=== PATIENT | male | born 1990 | race Caucasian/White ===

== ENCOUNTER 2019-01-24 20:32 | Emergency (ER) | payer OTHER ==
[~2019-01-24] VITALS: Ht 175.3 cm; Wt 89.8 kg
[2019-01-24 20:36] VITALS: BP 176/98
--- NOTE | 2019-01-24 20:38 | NUR ---
TO LOBBY AWAITNG BED, VSS.
--- NOTE | 2019-01-24 21:15 | NUR ---
PT TAKEN TO BED 1.
--- NOTE | 2019-01-24 21:25 | NUR ---
PT BIBA C/O ANXIETY. PT STATES HE WAS AT WORK AT [employer] STARTED FEELING ANXIOUS, STATES "I JUST WANT TO RELAX", PT STATES HE LAST USED COCAINE ON SUNDAY. PT STATES 06/12 HEACHE STARTING TODAY. +FLIGHT OF IDEAS, +EXCESSIVE, CLEAR SPEECH. SAFETY PRECAUTIONS IN PLACE. PENDING ER MD BIRD. PMH: DRUG ABUSE
[2019-01-25 00:20] VITALS: BP 150/80
--- NOTE | 2019-01-25 00:20 | NUR ---
Patient discharged with v/s stable. Written and verbal after care instructions given and explained. Patient alert, oriented and verbalized understanding of instructions. Ambulatory with steady gait. All questions addressed prior to discharge. ID band removed. Patient advised to follow up with PMD. Rx of Atarax 25mg given. Patient educated on indication of medication including possible reaction and side effects. Opportunity to ask questions provided and answered.
== END 2019-01-25 00:20 | disposition home or self-care (01) ==
LOC: MED 20:32
DX: F41.9 Anxiety disorder, unspecified (principal); R06.02 Shortness of breath; R11.2 Nausea with vomiting, unspecified; F32.9 Major depressive disorder, single episode, unspecified; Z90.49 Acquired absence of other specified parts of digestive tract
CPT/HCPCS: 81002; 99283; 99284

== ENCOUNTER 2020-01-18 19:42 | Emergency (ER) | payer OTHER ==
[~2020-01-18] VITALS: Ht 177.8 cm; Wt 90.7 kg
--- NOTE | 2020-01-18 19:42 | NUR ---
PT BIB [facility], PREBOOK. TAKEN TO TENT
[2020-01-18 19:45] VITALS: BP 106/58
--- NOTE | 2020-01-18 20:01 | NUR ---
29 Y/O MALE BROUGHT TO US A PREBOOK. PT PRESENTS WITH TACHYCARDIA/TACHYPNEA. RESP EVEN AND UNLABORED. VSS. AAOX4. PT ADMITS TO AMPHETAMINE USE TODAY. DENIES ANY FEVER/CHILLS/COUGH. NO PMH NKA
--- NOTE | 2020-01-18 20:02 | NUR ---
Patient discharged with v/s stable. Written and verbal after care instructions given and explained. Patient verbalized understanding. Police with in custody. All questions addressed prior to discharge. Advised to follow up with PMD.
[2020-01-18 20:06] VITALS: BP 106/58
== END 2020-01-18 20:02 ==
LOC: MED 19:42
DX: R00.0 Tachycardia, unspecified (principal); F15.10 Other stimulant abuse, uncomplicated; Z90.49 Acquired absence of other specified parts of digestive tract; Z02.89 Encounter for other administrative examinations
CPT/HCPCS: 99283